=== PATIENT | female | born 1995 | race Caucasian/White ===

== ENCOUNTER 2018-11-15 00:57 | Emergency (ER) | payer BC, OTHER ==
[~2018-11-15] VITALS: Ht 165.1 cm; Wt 72.6 kg
--- NOTE | 2018-11-15 01:32 | NUR ---
PT PRESENTED TO THE ER WITH A C/O GENERALIZED BODY PAIN WITH MUSCLE SPASMS. PT STATED THAT SHE SUFFERS FROM FIBROMYALGIA. PT WENT TO AN ER LAST WEEK AND WAS GIVEN MEDICATION FOR THIS AND NOW SHE IS OUT OF THE MEDICATION. PT IS UNABLE TO SEE HER PMD FOR A COUPLE OF DAYS AND STATED THAT SHE ALSO SUFFERS FROM DEPRESSION. PT STATED THAT THE PAIN IS CAUSING HER TO FEEL SUICIDAL IDEATIONS. PT HAS A PLAN TO EITHER HAND HERSELF OR TAKE PILLS AND OD. PT STATED THAT SHE FELT HE SI WOULD GO AWAY IF THE PAIN WAS ADDRESSED AND TAKEN CARE OF. PT APPEARS CALM AND COOPERATIVE.
--- NOTE | 2018-11-15 01:34 | NUR ---
SILVESTRE, GENERAL INTERNAL MEDICINE PHYSICIAN, IS AT THE BEDSIDE FOR BLOOD DRAW. PT IS UNABLE TO GIVE A URINE SAMPLE AT THIS TIME.
--- NOTE | 2018-11-15 01:35 | NUR ---
DR. MADRID IS AT THE BEDSIDE.
--- NOTE | 2018-11-15 01:47 | NUR ---
PT'S BELONGINGS PLACED IN THE NURSES' STATION. PT WAS LEFT HER SWEAT PANTS AND SWEAT SHIRT, THE ROOM IS VERY COLD. PT HAS A BLANKET FROM HOME PLUS 2 WARM BLANKETS.
--- NOTE | 2018-11-15 01:47 | NUR ---
URINE SAMPLE OBTAINED AND LAB CALLED FOR P/U.
[2018-11-15 01:50] LABS: BASOPHILS % (AUTO) 0.6 % (0.0-2.0); HEMATOCRIT 38 % (33-45); HEMOGLOBIN 12.8 g/dL (11.5-14.8); LYMPHOCYTES # (AUTO) 2.3 /CMM (0.8-4.8); LYMPHOCYTES % (AUTO) 35.6 % (20.0-44.0); MEAN CORPUSCULAR HGB CONC 33 g/dl (31.0-36.0); MEAN CORPUSCULAR VOLUME 90 fL (82-100); MONOCYTES # (AUTO) 0.5 /CMM (0.1-1.30); MONOCYTES % (AUTO) 7.8 % (2.0-12.0); NEUTROPHILS # (AUTO) 3.4 /CMM (1.8-8.9); PLATELET COUNT (AUTO) 211 /CMM (150-450); RED BLOOD CELL COUNT(AUTO) 4.27 MIL/uL (4.0-5.2); WHITE BLOOD COUNT (AUTO) 6.3 K/uL (4.3-11.0)
[2018-11-15 01:54] LABS: APPEARANCE,URINE CLOUDY (CLEAR); BILIRUBIN,URINE NEGATIVE (NEGATIVE); BLOOD, URINE NEGATIVE Ery/uL (NEGATIVE); COLOR,URINE YELLOW (YELLOW); KETONES,URINE TRACE (NEGATIVE); LEUKOCYTE ESTERASE ,URINE NEGATIVE (NEGATIVE); NITRITE, URINE NEGATIVE (NEGATIVE); PH,URINE 7.5 (5.0-8.0); PROTEIN,URINE NEGATIVE (NEGATIVE); UGLUCOSE NEGATIVE (NEGATIVE)
--- NOTE | 2018-11-15 01:54 | NUR ---
PT WAS MOVED TO ER 3 WHERE THERE IS A SITTER, HANK MONROE.
[2018-11-15] MEDS ORDERED: ONDANSETRON 4 MG TAB.RAPDIS ONE (01:55)
[2018-11-15 01:57] LABS: CALCIUM, SERUM 8.6 mg/dL (8.5-10.1); CREATININE 0.5 mg/dL (0.6-1.3); POTASSIUM 3.6 mmol/L (3.5-5.1)
[2018-11-15 01:58] LABS: BACTERIA,URINE Few /HPF (None Seen); RBC,URINE 0-2 /HPF (0-2); SQUAMOUS EPITHELIAL CELL,UR Few /HPF (None Seen); URINE AMORPHOUS PHOSPHATES Moderate /HPF (None Seen); WBC,URINE 0-2 /HPF (0-3)
[2018-11-15] MEDS ORDERED: ONDANSETRON 4 MG TAB.RAPDIS PO ONE (02:00)
[2018-11-15] MEDS ORDERED: oxyCODONE/APAP (5/325 MG) 1 UDTAB TABLET PO ONE (02:00)
[2018-11-15] MEDS ORDERED: oxyCODONE/APAP (5/325 MG) 1 UDTAB TABLET ONE (02:03)
--- NOTE | 2018-11-15 02:06 | NUR ---
PT REQUESTED A HEAT PACK. PT REC'D A NEW HEAT PACK. OLD PACK THROWN AWAY.
[2018-11-15 02:11] LABS: ALBUMIN 3.6 g/dL (3.4-5.0); BILIRUBIN,DIRECT 0.1 mg/dL (0.0-0.2); BILIRUBIN,TOTAL 0.3 mg/dL (0.2-1.0); TOTAL PROTEIN, SERUM 6.8 g/dL (6.4-8.2)
[2018-11-15 02:16] LABS: SALICYLATE 1.1 mg/dL (2.8-20.0)
--- NOTE | 2018-11-15 02:28 | NUR ---
PT WANTED TO KNOW HOW LONG IT WILL BE BEFORE THE PAIN MEDICATION TAKES EFFECT. PT WAS TOLD THAT IT WOULD BE AT LEAST 30 MINS BEFORE SHE WOULD START TO FEEL IT WORKING. PT WANTED A MUSCLE RELAXER, BUT WAS TOLD THAT SHE NEEDED TO BE ALERT FOR HE [employer].
--- NOTE | 2018-11-15 02:40 | NUR ---
CALLED RAE MAYEN LCSW RE: PT IS MEDICALLY CLEARED FOR EVAL.
--- NOTE | 2018-11-15 03:04 | NUR ---
PT WANTED A SNACK. PT REC'D A JELLO, PUDDING, AND JUICE.
--- NOTE | 2018-11-15 03:33 | NUR ---
DAKOTA MCBRIDE, IS AT THE BEDSIDE SPEAKING TO THE PT.
[2018-11-15 04:25] VITALS: BP 102/64
--- NOTE | 2018-11-15 04:29 | NUR ---
PT WANTED TO SPEAK TO HER MOTHER. PT REC'D HER CELL PHONE. CHARGE NURSE IS AWARE. SITTER IS AT THE BEDSIDE.
--- NOTE | 2018-11-15 05:20 | NUR ---
PT'S MOTHER ARRIVED AND IS AT THE BEDSIDE. SITTER IS STILL AT THE BEDSIDE.
--- NOTE | 2018-11-15 05:24 | NUR ---
PT'S MOTHER ASKED IF PT COULD HAVE MEDICATION FOR ANXIETY. STATED A LITTLE WHILE AGO THAT SHE WAS NOT GOING TO GIVE HER ANY MORE MEDICATION.
--- NOTE | 2018-11-15 05:43 | NUR ---
THOMASANZ ARRIVED AND REPORT WAS GIVEN TO EMT.
--- NOTE | 2018-11-15 05:53 | NUR ---
EMT'S REC'D PT'S BELONGINGS. PT HAS HER CELL PHONE AND EARBUDS AT THE BEDSIDE.
--- NOTE | 2018-11-15 06:08 | NUR ---
PT IS GOING TO [facility] [place].
--- NOTE | 2018-11-15 06:13 | NUR ---
CALLING [facility] FOR REPORT. REPORT GIVEN TO ROBIN RN. ACCEPTING MD IS DR. ADAME.
== END 2018-11-15 06:26 ==
LOC: ER 01:02
DX: R45.851 Suicidal ideations (principal); G89.29 Other chronic pain; M79.7 Fibromyalgia; F32.9 Major depressive disorder, single episode, unspecified; Z90.89 Acquired absence of other organs; Z90.49 Acquired absence of other specified parts of digestive tract
CPT/HCPCS: 36415; 80048-TC; 80076-TC; 80305; 81000-TC; 84703-TC; 85025-TC; G0480; Q0162